=== PATIENT | female | born 1975 | race Caucasian/White ===

== ENCOUNTER → 2022-01-22 08:41 | Outpatient (CLI) | payer BC, SELFPAY ==
--- NOTE | ~2022-01-22 | US_ITS ---
EXAMINATION: US abdomen complete EXAM DATE: 01/22/2022 09:08 INDICATION: RUQ pain TECHNIQUE: Multiple grayscale and Doppler images of the complete abdomen were obtained (by a technolo gist who performed the scan) and subsequently reviewed. Comparison is made to prior examination from 07/06/2017. FINDINGS: The abdominal aorta is normal in caliber. Visualized portion IVC is patent. The pancreatic head a nd body are normal in appearance. The pancreatic tail is not visualized. The liver has normal echogenicity and contour. There are no focal liver lesions identified. There is no evidence of intrahepatic biliary duct dilation. Portal venous flow was seen in the hepatopedal , normal direction and has normal Doppler waveform. Common bile duct measures 4 mm, which is normal. The gallbladder wall is normal in thickness, with ex pected amount of distention. No sonographic evidence of pericholecystic fluid. There is no cholelit hiases. Technologist performing exam reports patient did not demonstrate sonographic Stratton's sign. Please note that this sign is less reliable in patients who have received pain medication. Right kidney: There is normal contour and echogenicity. It measures 10.9 x 4.4 x 5.2 centimeters. There are no focal renal lesions identified. There is no hydronephrosis. Left kidney: There is normal contour and echogenicity. It measures 9.3 x 5.8 x 5.4 centimeters. Th ere are no focal renal lesions identified. There is no hydronephrosis. The spleen measures 9.7 centimeters and is morphologically normal. IMPRESSION: Unremarkable complete abdominal ultrasound exam. Reviewed, dictated and finalized at location A. HOUSE PROCESSOR
== END ==
DX: R10.11 Right upper quadrant pain (principal)
CPT/HCPCS: 76700

== ENCOUNTER 2022-11-28 10:21 | Emergency (ER) | payer BC, SELFPAY ==
[2022-11-28 10:32] VITALS: BP 111/61; PULSE 68; RESP 16; TEMP 36.8; O2SAT 100
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
== END 2022-11-28 11:12 | disposition home or self-care (01) ==
PROVIDERS: Emergency Provider Nurse Practitioner Family
DX: S80.02XA Contusion of left knee, initial encounter (principal); W19.XXXA Unspecified fall, initial encounter; Y93.89 Activity, other specified; Y99.0 Civilian activity done for income or pay; F41.9 Anxiety disorder, unspecified; F32.A Depression, unspecified
CPT/HCPCS: 99212; G0463

== ENCOUNTER → 2023-01-03 08:42 | Outpatient (CLI) | payer BC, SELFPAY ==
--- NOTE | ~2023-01-03 | XR_ITS ---
XR abdomen/kub 1V 01/03/2023 08:57 INDICATION: Abdominal pain TECHNIQUE: KUB COMPARISON: CT dated 07/29/2017 FINDINGS: Bowel gas pattern is normal. There is no evidence of free air, mass, organomegaly, ascites or obstruction. No abnormal calculi are seen. The bones appear intact. There is an IUD in the pelv is. IMPRESSION: 1: No acute abdominal abnormality identified. Reviewed, dictated and finalized at location B. ACE WORKER
== END ==
PROVIDERS: PCP Urology; Visit Provider Urology
DX: R10.9 Unspecified abdominal pain (principal)
CPT/HCPCS: 74018

== ENCOUNTER 2024-12-18 10:10 | Emergency (ER) | payer BC, SELFPAY ==
--- NOTE | 2024-12-18 10:23 | ED_ITS ---
HPI - URI/Sore Throat General Chief Complaint: Upper Respiratory Infection Stated Complaint: Strep Symptoms Time Seen by Provider: 12/18/24 10:25 Source: patient Mode of arrival: ambulatory Limitations: no limitations History of Present Illness HPI Narrative: Milka is a 49-year-old female patient presenting to the clinic today with complaints of fever, body aches, chills, ear pain, congestion, cough, and sore throat x1 day. She denies any chest pain or shortness of breath. 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: fever, cough, sore throat and nasal congestion Related Data Home Medications ?Medication ?Instructions ?Recorded ?Confirmed ?Last Taken ?Type adalimumab 40 mg/0.4 mL 40 mg subcut WEEKLY 11/28/22 11/28/22 Unknown History subcutaneous syringe kit (Humira(CF)) levonorgestrel (Mirena) See Rx Instructions .Route .COMPLEX 11/28/22 11/28/22 Unknown History venlafaxine 75 mg capsule,extended 75 mg PO DAILY 11/28/22 11/28/22 Unknown History release 24 hr (Effexor XR) Allergies Allergy/AdvReac Type Severity Reaction Status Date / Time No Known Allergies Allergy Verified 12/18/24 10:23 Review of Systems Review of Systems: Pertinent positives per HPI. Patient denies any fever, chills, rash, headache, visual changes, dizziness, cough, shortness of breath, chest pain, palpitations, nausea, vomiting, diarrhea, constipation, abdominal pain, or any urinary issues. PMFSH Family History Family History Grandparent Hypertension Cerebrovascular accident Diabetes mellitus Social History Social History Alcohol intake: current Comments At the time of my signature, I reviewed and agree with the nursing past medical, surgical, social, and family history. There is no relevant family history pertinent to the patient complaint. Exam Narrative: General: Well-developed, well nourished, in no apparent distress Head: Normocephalic, atraumatic Eyes: Pupils equally round and reactive to light bilaterally, EOM intact, sclera and conjunctive clear, no discharge, lids normal Ears: TMs intact and congested ear canals clear, no drainage, grossly hearing normal. Nose: Nares patent, clear nasal discharge, mild inflammation, no sinus tenderness. Mouth: Oral pharynx red without lesions or masses, good dentition, MMM. Postnasal drip Neck: Supple, trachea midline, no enlargement of anterior or posterior cervical nodes, no thyroid masses or goiter palpable. Cardio: Regular rate and rhythm, s1 and s2 normal, no murmur appreciated. Resp: Clear to auscultation bilaterally, no rhonchi, rales, wheezing or rubs Course Course Emergency Course: Portions of this record may have been created with voice recognition software. Level of Care: Express Care Visit Vital Signs Vital signs: Vital Signs Temperature 37.2 C 12/18/24 10:31 Pulse Rate 102 H 12/18/24 10:31 Respiratory Rate 16 12/18/24 10:31 Blood Pressure 115/80 12/18/24 10:31 Pulse Oximetry 99 12/18/24 10:31 Temperature 37.2 C 12/18/24 10:31 Pulse Rate 102 H 12/18/24 10:31 Respiratory Rate 16 12/18/24 10:31 Blood Pressure 115/80 12/18/24 10:31 Pulse Oximetry 99 12/18/24 10:31 Vital signs reviewed MDM - URI/Sore Throat MDM Narrative Medical decision making narrative: At the time of visit patient is resting comfortably on the exam table. Patient appears to be nontoxic. Labs: COVID, influenza, and strep test were performed. All testing was negative. Plan: We will send strep for culture. I suspect patient has URI/pharyngitis/viral syndrome. Supportive measures were discussed with the pat ient and they voiced understanding discharge instructions and agrees to treatment plan. Return precautions reviewed Differential Diagnosis Differential diagnosis: Likely upper respiratory infection, otitis media, sinusitis, viral infection, bronchitis, influenza, pharyngitis and other (COVID) Discharge Plan Discharge Clinical Impression: Viral infection, Pharyngitis, Upper respiratory infection Patient Disposition: Home, Self-Care Condition: Stable Instructions: Antibiotic Form, Pharyngitis (ED), Viral Syndrome (ED), Cold Symptoms (ED) Additional Instructions: COVID, influenza, and strep test were all negative in the clinic today. We will send strep for culture if this comes back positive we will contact you in place you on antibiotics at that time. May take DayQuil/NyQuil for cold/flu symptoms Increase fluids and stay well hydrated Tylenol/motrin for pain/fever Flonase and OTC antihistamines as directed Vicks vapor rub to open sinuses Sinus rinses for congestion Cepacol spray, cough drops, throat lozenges, warm tea with honey/lemon, gargle salt water to soothe throat BRAT diet for diarrhea Clear liquids x 24 hours then advance as tolerated for nausea/vomiting Go to the ED if you develop a worsening in your condition- high fever not controlled by Tylenol or Motrin, dehydration, weakness, lethargy, shortness of breath, or chest pain. Follow up with your PCP in 3-5 days if symptoms persist. Patient Language: Venezuelan Prescriptions: No Action venlafaxine [Effexor XR] 75 mg capsule,extended release 24hr 75 mg PO DAILY Humira(CF) 40 mg/0.4 mL syringe kit 40 mg SUBCUT WEEKLY Mirena 20 mcg/24 hours (8 yrs) 52 mg Intrauterine Device See Rx Instructions .ROUTE .COMPLEX Rx Instructions: 20 mcg intrauterinely Follow-up/Referrals: Meseret,Olivier Navarrete M.D. [Primary Care Provider] - Stand Alone Forms: Work/School Release IP Quality NIHSS Nursing Documentation ED NIHSS nursing documentation: reviewed/agree
[2024-12-18 10:31] VITALS: BP 115/80; PULSE 102; RESP 16; TEMP 37.2; O2SAT 99
[2024-12-18 10:51] LABS: EDCOVIDSCREEN Negative (Negative); EDINFLUASCREEN Negative (Negative); EDINFLUBSCREEN Negative (Negative); EDSTREPNEGPOS1 Negative (Negative)
== END 2024-12-18 10:43 | disposition home or self-care (01) ==
PROVIDERS: Emergency Provider Nurse Practitioner Family; PCP Family Medicine
DX: J06.9 Acute upper respiratory infection, unspecified (principal); B97.89 Other viral agents as the cause of diseases classified elsewhere
CPT/HCPCS: 87081; 87426; 87804; 87880; 99213; G0463